=== PATIENT | male | born 1960 | race Caucasian/White ===

== ENCOUNTER 2021-02-09 03:38 | Emergency (ER) | payer SELFPAY ==
[~2021-02-09] VITALS: Ht 177.8 cm; Wt 90.7 kg
[2021-02-09 03:39] VITALS: BP 133/77
[2021-02-09 06:17] VITALS: BP 133/77
== END 2021-02-09 06:17 | disposition home or self-care (01) ==
LOC: MED 03:38
DX: F11.29 Opioid dependence with unspecified opioid-induced disorder (principal); Y90.8 Blood alcohol level of 240 mg/100 ml or more
CPT/HCPCS: 36415; 99283; G0482

== ENCOUNTER 2021-02-11 09:47 | Emergency (ER) | payer SELFPAY ==
[~2021-02-11] VITALS: Ht 185.4 cm; Wt 81.6 kg
--- NOTE | 2021-02-11 09:47 | NUR ---
Patient BIB [facility] for pre-booking medical screening exam, transferred to [facility]. RN is evaluating the patient.
[2021-02-11 09:52] VITALS: BP 139/77
[2021-02-11] MEDS ORDERED: KETOROLAC 60 MG/2 ML VIAL IM ONE (10:15)
--- NOTE | 2021-02-11 10:25 | NUR ---
PATIENT [facility] POLICE DEPT. PATIENT EXAMINED BY DR. MCCLURE. PATIENT MEDICALLY CLEARED AND RELEASED IN CUSTODY IN STABLE CONDITION. ORIGINAL PRE-BOOK FORM GIVEN TO OFFICER [facility]AVE[facility].
== END 2021-02-11 10:25 ==
LOC: MED 09:47
DX: M79.605 Pain in left leg (principal); Z02.89 Encounter for other administrative examinations
CPT/HCPCS: 96372; 99283; J1885